=== PATIENT | male | born 1980 | race Caucasian/White ===

== ENCOUNTER 2021-07-20 02:59 | Outpatient (CLI) | payer OTHER, SELFPAY ==
[2021-07-20 10:17] LABS: Calculated LDL 181 mg/dL (<100); Cholesterol 263 mg/dL (<200); HDL Cholesterol 73 mg/dL (40-60); Triglyceride 45 mg/dL (<150)
[2021-07-21 13:42] LABS: Hemoglobin A1C 5.4 % (<5.7)
== END 2021-07-20 03:00 | disposition home or self-care (01) ==
PROVIDERS: Visit Provider Family Medicine
DX: Z13.220 Encounter for screening for lipoid disorders (principal); Z13.1 Encounter for screening for diabetes mellitus
CPT/HCPCS: 36415; 80061; 83036

== ENCOUNTER 2023-07-31 16:31 | Outpatient (REF) | payer OTHER, SELFPAY ==
[2023-07-31 21:33] LABS: Calculated LDL 195 mg/dL (<100); Cholesterol 272 mg/dL (<200); HDL Cholesterol 69 mg/dL (40-60); Triglyceride 41 mg/dL (<150)
== END 2023-07-31 16:32 | disposition home or self-care (01) ==
LOC: NCHCN 16:31
PROVIDERS: Visit Provider Family Medicine
DX: Z13.220 Encounter for screening for lipoid disorders (principal); Z83.49 Family history of other endocrine, nutritional and metabolic diseases
CPT/HCPCS: 80061

== ENCOUNTER → 2023-08-20 11:15 | Outpatient (CLI) | payer OTHER, SELFPAY ==
--- NOTE | 2023-08-20 | DI.RAD_ITS ---
Exam(s) XR LUMBAR SPINE COMPLETE EXAM: XR LUMBAR SPINE COMPLETE CLINICAL HISTORY: LOW BACK PAIN M54.50. TECHNIQUE: 2D digital imaging was performed. Five views. COMPARISON: No exams were available for comparison FINDINGS: BONES: No fracture or destructive lesion. Vertebral body heights are maintained. Small endplate oste ophytes. No facet hypertrophy identified. DISKS: Mild narrowing of the L L5-S1 disc space. The remaining intervertebral disc spaces are mainta ined. ALIGNMENT: Lumbar spinal alignment is within normal limits. SOFT TISSUE: Normal. IMPRESSION: Mild degenerative changes. DATA REPOSITORY: RADIATION DOSE DELIVERED:
--- NOTE | 2023-08-20 | DI.RAD_ITS ---
Exam(s) XR HIP LT COMPLETE AP PELVIS EXAM: XR HIP LT COMPLETE AP PELVIS CLINICAL HISTORY: PAIN LEFT HIP M25.552. TECHNIQUE: 2D digital imaging was performed. Two views. COMPARISON: No exams were available for comparison FINDINGS: BONES: No acute fracture is present. No bony destructive lesion is seen. JOINTS: No dislocation present. Hip joint spaces are maintained. Minimal acetabular spurring. SI joints and pubic symphysis are unremarkable. SOFT TISSUE: Normal. IMPRESSION: Unremarkable radiographs of the left hip. Unremarkable radiographs of the pelvis DATA REPOSITORY: RADIATION DOSE DELIVERED:
--- NOTE | 2023-08-20 | DI.RAD_ITS ---
Exam(s) XR CERVICAL SPINE COMP 4-5V EXAM: XR CERVICAL SPINE COMP 4-5V CLINICAL HISTORY: CERVICALGIA M54.2. TECHNIQUE: 2D digital imaging was performed. Five views were performed. COMPARISON: No exams were available for comparison FINDINGS: BONES: No fracture or destructive lesion. Vertebral bodies are unremarkable. No significant neural foraminal narrowing. DISKS: Intervertebral disc spaces are maintained. Minimal endplate osteophytes at C5-6. ALIGNMENT: Cervical spinal alignment is within normal limits. The odontoid and atlantoaxial articulat ions are normal. SOFT TISSUE: Normal. The lung apices are clear. IMPRESSION: Mild degenerative disc changes at C5-6. DATA REPOSITORY: RADIATION DOSE DELIVERED:
== END ==
PROVIDERS: Visit Provider Family Medicine
DX: M25.552 Pain in left hip (principal); M50.122 Cervical disc disorder at C5-C6 level with radiculopathy
CPT/HCPCS: 72050; 72110; 73502

== ENCOUNTER 2024-01-29 08:35 | Outpatient (CLI) | payer OTHER, SELFPAY ==
--- OUTSIDE RECORDS SUMMARY | 2024-01-29 08:37 | XMS_ITS | Encounter Summary ---
Author Organization [facility] Address [address] [place] [address] Care Team Providers Care Digital Content Manager Name Role Phone Stephanie Fam MD Primary Care Provider [phone] Reason for Visit * Reason Comments Medications Refill Encounter Details Date Type Department Care Team (Late st Contact Info) Description 09/13/2023 Refill [facility] [address] [id number] Stephanie Fam MD [address] [place] [id number] Medications Refill Social History Tobacco Use Types Packs/Day Years Used Date Smoking Tobacco: Never Smokeless Tobacco: Never Alcohol Use Standard Drinks/Week Comments Yes 0 (1 standard drink = 0.6 oz pur e alcohol) 5 beers per week Overall Financial Resource Strain (CARDIA) Answe r Date Recorded How hard is it for you to pa y for the very basics like food, housing, medical care, and heating? Not hard at all 07/21/2021 PHQ-2 Answer Date Recorded PHQ-2 SUBTOTAL 1 07/21/2021 Hunger Vital Sign Answer Date Recorded Within the past 12 months, y ou worried that your food would run out before you got the money to buy more. Never true 07/21/19 22 Within the past 12 months, t he food you bought just didn't last and you didn't have money to get more. Never true 07/21/2021 PRAPARE - Transportation Answer Date Re corded In the past 12 months, has l ack of transportation kept you from medical appointments or from getting medications? No 09/2021 In the past 12 months, has l ack of transportation kept you from meetings, work, or from getting things needed for daily living? No 07/21/2021 Housing Stability Vital Sign Answer Jeremy e Recorded In the last 12 months, was t here a time when you were not able to pay the mortgage or rent on time? No 07/21/2021 In the last 12 months, how many places have you lived? 1 07/21/2021 In the last 12 months, was t here a time when you did not have a steady place to sleep or slept in a penitentiary (including now)? No 07/21/2021 Sex and Gender Information Value Date Recorded Sex Assigned at Not on file Gender Identity Not on file Sexual Orientation Not on file documented as of this encounter Miscellaneous Notes * Telephone Encounter - Stephanie Fam MD - 09/15/2023 1852 EDT Can we find out what he is using this for? documented in this encounter Plan of Treatment Not on file documented as of this encounter Visit Diagnoses Diagnosis Rash Rash and other nonspecific skin eruption documented in this encounter Care Teams Digital Content Manager Relationship Specialty Start Date End Date Stephanie Fam MD [address] [place] [id number] PCP - General 01/02/17 documented as of this encounter
--- OUTSIDE RECORDS SUMMARY | 2024-01-29 08:37 | XMS_ITS | Clinical Summary ---
Author Organization [facility] Address [address] [place] [address] Care Team Providers Care Supervisor Asphalt Paving Name Role Phone Stephanie Fam MD Primary Care Provider [phone] Allergies Active Allergy Reactions Criticality Noted Date Comments Epinephrine 01/02/2017 Low BP, shallow breathing Other - See Comments 01/02/2017 Dust, dander, and pollen Medications Medication Sig Dispensed Refills Start Date End Date Status ALBUTEROL INHL Inhale as directed. A ctive hydrocortisone (ANUSOL-HC) 2.5 % rectal creamIndications:Grad e I hemorrhoids Apply to affect area(s) as directed. 28 g 1 07/21/2021 Active albuterol 90 mcg/actuation inhalerIndications:Mi ld intermittent asthma without complication Inhale 2 Puffs as directed every 4 hours as needed for Wheezing. 1 Each 03/21/2023 Active ketoconazole (NIZORAL) 2 % creamIndications:Rash Apply 1 application topically to affected area daily. 15 g 03/21/2023 Active Active Problems Problem Noted Date Diagnosed Date Persistent disorder of initiating or maintaining sleep 01/02/2017 Immunizations Name Administration Dates Next Due Covid-19 Ad26 Vaccine (JANSS EN COVID-19) PF 0.5 ml IM (18 yrs+) 09/22/2020 Covid-19 mRNA Vaccine (MODER NA COVID-19) PF 0.5 ml IM (12 yrs+) 05/01/2021 Covid-19 mRNA-LNP Bivalent V accine (MODERNA BIVALENT ADDL DOSE) PF 0.5 mL IM (12 yrs+) (BLUE) 04/05/2022 Historical Hepatitis B Vaccine, Unspecified 12/16,02/16/1997,04/03/1996 Historical Influenza Vaccine, Unspecified 2021,03/29/2021 Influenza Vaccine =>3yo Split IM 04/25/2017,03/18 Pneumococcal Polysaccharide (PPSV23) Vaccine (PNEUMOVAX-23) =>2YO SQ/IM 06/08/2016 Td (Adult) (TDVAX) 2 Lf Vaccine =>7yo IM 006,04/03/1996 Tdap Vaccine =>7YO IM 07/30/2011 Social History Tobacco Use Types Packs/Day Years [...] place to sleep or slept in a care home (including now)? No 07/21/2021 Sex and Gender Information Value Date Recorded Sex Assigned at Not on file Gender Identity Not on file Sexual Orientation Not on file Obstetrics History Last Filed Vital Signs Vital Sign Reading Time Taken Comments Blood Pressure 144/87 07/21/2021 1257 EST Pulse 72 07/21/2021 1257 EST Temperature - - Respiratory Rate 14 01/02/2017 1155 EDT Oxygen Saturation 98% 01/02/2017 1155 EDT Inhaled Oxygen Concentration - - Weight 89.4 kg (197 lb) 07/21/2021 1257 EST Height 185.4 cm (6' 1) 07/21/2021 1257 EST Body Mass Index 25.99 07/21/2021 1257 EST Plan of Treatment Health Maintenance Due Date Last Done Comments Social Determinants Of Health (SDOH) 1980 07/21/2021 Lipid Profile Screening (Cholesterol) 1981 Advance Directive 02/08/1996 Tetanus (Adult) Immunization 07/30/2021 07/30/2011, 08/03/2005, 04/03/1996 Depression Screening 07/21/2022 07/21/2021 Cologuard (Colon Cancer Screening) 2023 Colonoscopy (Colon Cancer Screening) 2023 Colorectal Cancer Screening 2023 FIT Test (Colon Cancer Screening) 2023 Sigmoidoscopy (Colon Cancer Screening) 2023 COVID-19 Vaccine ( season) 2023 04/05/2022, 05/01/2021, 09/22/2020 Preventive Care Visit 07/21/2023 07/21/2021 Influenza Immunization (Adult) (#1) 2024 04/05/2022, 03/29/2021, 04/25/2017, Additional history exists Hepatitis B Vaccine Completed 01/11/1998, 02/16/1997, 04/03/1996 Pertussis (Adult) Immunization Completed 07/30/2011 HIV Screening Discontinued HPV Vaccines Aged Out No longer eligi ble based on patient's age to complete this topic Hepatitis C Screen Discontinued Care Teams Supervisor Asphalt Paving Relationship Specialty Start Date End Date Stephanie Fam MD [address] [place] [id number] PCP - General 01/02/17
--- OUTSIDE RECORDS SUMMARY | 2024-01-29 08:37 | XMS_ITS | Encounter Summary ---
Author Organization [facility] Address [address] [place] [address] Care Team Providers Care Hydrometer Tester Name Role Phone Stephanie Fam MD Primary Care Provider [phone] Reason for Visit * Reason Onset Date Comments Appointment Related 04/29/2017 Encounter Details Date Type Department Care Team (Late st Contact Info) Description 04/29/2017 Telephone [facility] - [address] [phone] Kanika Nino MD [address] [place] [address], [address] [place] [address] Appointment Related Social History Tobacco Use Types Packs/Day Years Used Date Smoking Tobacco: Never Alcohol Use Standard Drinks/Week Comments [...] place to sleep or slept in a halfway (including now)? No 07/21/2021 Sex and Gender Information Value Date Recorded Sex Assigned at Not on file Gender Identity Not on file Sexual Orientation Not on file documented as of this encounter Miscellaneous Notes * Telephone Encounter - Cris Ferguson - 04/29/2017 0837 EST Patient called regarding 05/02 appt, patient explained he needs to cancel the appt-he explained hasn't been using the cognitive behavioral techniques Dr. Nino suggested he use, but has had some luck with other techniques and requested I move out this appt. Rescheduled patient to August per patient's request. I will let Dr. Nino know the appt has moved. documented in this encounter Plan of Treatment Not on file documented as of this encounter Visit Diagnoses Not on filedocumented in this encounter Care Teams Hydrometer Tester Relationship Specialty Start Date End Date Stephanie Fam MD [address] [place] [id number] PCP - General 01/02/17 documented as of this encounter
--- OUTSIDE RECORDS SUMMARY | 2024-01-29 08:37 | XMS_ITS | Encounter Summary ---
Author Organization [facility] Address [address] [place] [address] Care Team Providers Care Inspector Poising Name Role Phone Stephanie Fam MD Primary Care Provider [phone] Reason for Visit * Reason Comments New Patient Visit * Referral (Routine) - Closed Specialty Diagnoses / Procedures Referred By Contac t Referred To Contact Sleep Medicine Diagnoses Other dyspnea and respiratory abnormality Hypersomnia, unspecified Organic parasomnia, unspecified Other organic sleep disorders Stephanie Fam MD [address] [place] [address] [facility] [address] [place] [id number] Referral ID Status Reason Start Date Expiration Date Visits Re quested Visits Authorized [id number] Closed 1 1 Encounter Details Date Type Department Care Team (Late st Contact Info) Description 01/02/2017 11:10 EDT Office Visit [facility] - [address] [phone] Kanika Nino MD [address] [place] [address], [address] [place] [address] Persistent disorder of initiating or maintaining sleep (Primary Dx); Fatigue, unspecified type; Snoring Social History Tobacco Use Types Packs/Day Years Used Date Smoking Tobacco: Never Alcohol Use Standard Drinks/Week Comments Yes 0 (1 standard drink = 0.6 oz pur e alcohol) 5 beers per week Sex and Gender Information Value Date Recorded Sex Assigned at Not on file Gender Identity Not on file Sexual Orientation Not on file documented as of this encounter Last Filed Vital Signs Vital Sign Reading Time Taken Comments Blood Pressure 134/86 01/02/2017 1155 EDT Pulse 68 01/02/2017 1155 EDT Temperature - - Respiratory Rate 14 01/02/2017 1155 EDT Oxygen Saturation 98% 01/02/2017 1155 EDT Inhaled Oxygen Concentration - - Weight 86.2 kg (190 lb) 01/02/2017 1155 EDT per pt Height 185.4 cm (6' 1) 01/02/2017 1155 EDT per pt Body Mass Index 25.07 01/02/2017 1155 EDT documented in this encounter Patient Instructions * Patient Instructions* Kanika Nino - 01/02/2017 11:10 EDT Healthy Sleep Advice If you are having problems sleeping, the National Sleep Foundation suggests the following to improve your sleep: Set and stick to a sleep schedule. Go to bed and wake up at the same times each day. Expose yourself to bright light in the morning and avoid it at night. Exposure to bright morning light energizes us and prepares us for a productive day. Alternatively, dim your lights when it's close to bedtime. Exercise regularly. Exercise in the morning can help you get the light exposure you need to set your biological clock. Avoid vigorous exercise close to bedtime if you are having problems sleeping. Establish a relaxing bedtime routine. Allow enough time to wind down and relax before going to bed. Create a cool, comfortable sleeping environment that is free of distractions. If you're finding that entertainment or work-related communications are creating anxiety, remove these distractions from your bedroom. Treat your bed as your sanctuary from the stresses of the day. If you find yourself still lying awake after 20 minutes or so, get up and do something relaxing in dim light until you are sleepy. Keep a worry book next to your bed. If you wake up because of worries, write them down with an action plan, and forget about them until morning. Avoid caffeinated beverages, chocolate and tobacco at night. Avoid large meals and beverages right before bedtime. No nightcaps. Drinking alcohol before bed can vonda you of deep sleep and can cause you to wake up too early. Avoid medicines that delay or disrupt your sleep. If you have trouble sleeping, ask your doctor or pharmacist if your medications might be contributing to your sleep problem. No late-afternoon or evening naps, unless you work nights. If you must nap, keep it under 45 minutes and before 3:00 pm. Reading Recommendations for Insomnia: The Insomnia Answer By Kavon Boyce, PhD On-line, validated, Interactive Cognitive Behavioral Treatment for Insomnia developed in [place] http://www.sleepio.com On-line Cognitive Behavioral Treatment for Insomnia Course through the [facility]: http://www.magruder hospitalTHEMA.Letsdecco/Pages/CCWProductDetails.aspx?category=Wel lnessPrograms&cat=WellnessCatalog&pid=NewSleep# Other lesser known On-line Programs: http://shuti.me/ http://cbtforinsomnia.com/ http://www.restorecbt.com/ Consider participating in The Sleep Well Program with Dr. Cee Reece (Cognitive Behavioral Treatment for Insomnia) - call [phone] to arrange documented in this encounter Progress Notes * Kanika Nino - 01/02/2017 1110 EDT [facility] Date of Service: 01/02/2017 Name: Luther Murphy : 1980 MR#: [id number] Luther Murphy is a 36 y.o. year old male sent for Sleep Consultation at the request of Stephanie Fam MD because of never feeling refreshed in the morning and feeling the same whether he slept 4 hours or 8 hours during the night. Luther describes feeling unrefreshed and tired in the morning since childhood. He does not remembera time when he slept well and awakened feeling refreshed with good wakefulness across the daytime. Currently, his sleep schedule is extremely irregular, such that he goes to bed somewhere between 10:00 p.m. and as late as 4:00 a.m. and then sleeps for a variable amount of time, usually waking by 9am to care for his children. He frequently has difficulty falling asleep so he avoids going to sleep until he is very tired and frequently spends late nights on the computer, surfing the net, working or looking at news as a result. He has racing thoughts which prevents him from falling asleep and from getting back to sleep if he awakens. He has tried taking melatonin several times, but felt nauseated with that. He occasionally uses Benadryl as a sleep aid which makes him drowsy but does not improve sleep quality. He would prefer not to use medications. He uses marijuana frequently around 7:00 p.m. in the evening time to relax, but does not fall asleep with that. When he wakes in the morning, he is unrested and is tired and sleepy across the daytime. Jenera Sleepiness Scale is 9/24. It takes him at least a few hours to get going in the morning and he would love to take a nap in the afternoon about 5 times a week, although he rarely has time to do that. He finds a twenty minute nap to be refreshing. He has been told he snores lightly and his brother has told him he stops breathing. His , however, has not noticed anything unusual about his breathing during sleep, although she sleeps solidly. He has some chronic nasal congestion and has a history of allergies as well as a history of nasal fra cture, which he had repaired. He remotely tried a nasal steroid inconsistently. He is aware of mouth breathing during sleep. He says that he has poor sleep habits and discipline. He holds a diagnosis of ADD since he was 15 years old. He did try stopping drinking any beer or using marijuana for about a 4-week period but had minimal improvement in sleep or daytime functioning. He denies leg symptoms, nightmares or vivid dreams, narcolepsy symptoms, or parasomnias. Outpatient Prescriptions Marked as Taking for the 01/02/17 encounter (Office Visit) with Kanika Nino MD Medication Sig Dispense Refill ??? ALBUTEROL INHL Inhale as directed. Allergies: Epinephrine and Other - see comments Social History Social History ??? Marital status: Spouse name: N/A ??? Number of children: N/A ??? Years of education: N/A Social History Main Topics ??? Smoking status: Never Smoker ??? Smokeless tobacco: None ??? Alcohol use Yes Comment: 5 beers per week ??? Drug use: 7.00 per week Special: Marijuana Comment: evening ??? 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 His children are 5 and 8. FH: Mother: insomnia ROS (scanned in) was reviewed. I performed a complete ten-point review of systems with pertinent positives noted above and all the other systems negative. Blood pressure 134/86, pulse 68, resp. rate 14, height 185.4 cm (73), weight 86.2 kg (190 lb), SpO2 98 %. Body mass index is 25.07 kg/(m^2). Head: atraumatic, normocephalic Oropharynx: Modified Mallampati 3, 2+ lateral narrowing, Dentition: Intact Nasal: very mild congestion bilaterally Neck: Circumference supple, no LAD, Thyroid normal Lungs: Clear, no wheezing with forced expiration, normal respiratory excursion Heart: RRR, Normal S1, S2, no murmurs Abdomen: Soft, NT, +BS Extremities: no peripheral edema, no cyanosis, warm Neuro: Gait normal. Strength 5/5 grossly. Speech fluent. Psychiatric: AOX3. Normal mood and affect. Judgment and insight appropriate. Jenera Sleepiness Scale: 03/10 Assessment: Insomnia compounded by very poor sleep hygiene and very irregular sleep habits, He has been unable to change things significantly despite multiple attempts. Electronics during the night compound things. Anxiety possibly contributing as well ? Sleep disordered breathing, low probability but may need evaluation if things don't improve with Cognitive Behavioral Treatment for Insomnia with Dr. Cee Reece Nasal congestion with h/o allergies and nasal trauma/repair - Minor problem Plan: Cognitive Behavioral Treatment for Insomnia with Dr. Cee Reece Medication discussed but nothing scripted for - he agrees with waiting to see how CBT-I works first Sleep hygiene measure discussed - avoid substances, 8 hour window free of electronics/work at night, exercise in the morning Trial of Flonase for nasal congestion Lab testing deferred to PCP. F/u 4 months, may consider doing a PSG or HSAT at that time to r/o Sleep Disordered Breathing Signed: Kanika Nino MD documented in this encounter Plan of Treatment Not on file documented as of this encounter Visit Diagnoses Diagnosis Persistent disorder of initiating or maintaining sleep- Primary Fatigue, unspecified type Snoring Other dyspnea and respiratory abnormality documented in this encounter Historical Medications * This list may reflect changes made after this encounter. Medication Sig Dispensed Refills Start Date End Date ALBUTEROL INHL Inhale as directed. added in this encounter Care Teams Inspector Poising Relationship Specialty Start Date End Date Stephanie Fam MD [address] [place] [id number] PCP - General 01/02/17 documented as of this encounter
--- OUTSIDE RECORDS SUMMARY | 2024-01-29 08:37 | XMS_ITS | Encounter Summary ---
Author Organization [facility] Address [address] [place] [address] Care Team Providers Care Educational Consultant Name Role Phone Stephanie Fam MD Primary Care Provider [phone] Reason for Visit * Reason Onset Date Comments Appointment Related 07/21/2021 Encounter Details Date Type Department Care Team (Late st Contact Info) Description 07/21/2021 Telephone [facility] [address] [phone] Stephanie Fam MD [address] [place] [address] Appointment Related Social History Tobacco Use Types [...] place to sleep or slept in a residential (including now)? No 07/21/2021 Sex and Gender Information Value Date Recorded Sex Assigned at Not on file Gender Identity Not on file Sexual Orientation Not on file documented as of this encounter Miscellaneous Notes * Telephone Encounter - Cristiane Ellis - 07/24/2021 0825 EST Pt scheduled * Telephone Encounter - Cristiane Ellis - 07/21/2021 1408 EST Left vm for pt to cb to sched pex 07/22/2022 documented in this encounter Plan of Treatment Not on file documented as of this encounter Visit Diagnoses Not on filedocumented in this encounter Care Teams Educational Consultant Relationship Specialty Start Date End Date Stephanie Fam MD [address] [place] [id number] PCP - General 01/02/17 documented as of this encounter
--- OUTSIDE RECORDS SUMMARY | 2024-01-29 08:37 | XMS_ITS | Encounter Summary ---
Author Organization [facility] Address [address] [place] [address] Care Team Providers Care Certified Phlebotomy Technician Name Role Phone Stephanie Fam MD Primary Care Provider [phone] Reason for Visit * Reason Comments Annual Exam Establish Care Encounter Details Date Type Department Care Team (Latest Contact Info) Description 07/21/2021 13:00 EST Telemedicine [facility] Integrative Family Medicine [address] [id number] Stephanie Fam MD [address] [place] [address] Grade I hemorrhoids (Primary Dx); Mild intermittent asthma without complication; Encounter for sterilization; Rash; Encounter for well adult exam with abnormal findings Social History Tobacco Use Types Packs/Day Years [...] place to sleep or slept in a retirement (including now)? No 07/21/2021 Sex and Gender Information Value Date Recorded Sex Assigned at Not on file Gender Identity Not on file Sexual Orientation Not on file documented as of this encounter Last Filed Vital Signs Vital Sign Reading Time Taken Comments Blood Pressure 144/87 07/21/2021 1257 EST Pulse 72 07/21/2021 1257 EST Temperature - - Respiratory Rate - - Oxygen Saturation - - Inhaled Oxygen Concentration - - Weight 89.4 kg (197 lb) 07/21/2021 1257 EST Height 185.4 cm (6' 1) 07/21/2021 1257 EST Body Mass Index 25.99 07/21/2021 1257 EST documented in this encounter Ordered Prescriptions Prescription Sig Dispensed Refills Start Date End Da te hydrocortisone (ANUSOL-HC) 2.5 % rectal creamIndications:Grade I hemorrhoids Apply to affect area(s) as directed. 28 g 1 07/21/2021 ketoconazole (NIZORAL) 2 % creamIndications:Rash Apply 1 application topically to affected area daily. 15 g 07/21/2021 10/01/2022 albuterol 90 mcg/actuation inhalerIndications:Mild intermittent asthma without complication Inhale 2 Puffs as directed every 4 hours as needed for Wheezing. 1 Each 07/21/2021 03/21/2023 documented in this encounter Progress Notes * Suzie Garces MA - 07/21/2021 1300 EST Called pt prior to consented televid w/ Aman Fam MD. Confirmed today's visit is for re-establishcare/pex only. Reviewed meds, allergies and vitals. Chart has been updated. Stephanie Fang MD - 07/21/2021 1300 EST Images from the original note were not included. [facility] Video Visit Today's visit was provided through telemedicine video conferencing: The location of the patient: Home The location of the provider: Office Verbal consent: The concept of ???Telemedicine?? has been described to the patient.Patient has been informed of the anticipated benefits and possible risks. Patient understands the information provided regarding telemedicine, has had the opportunity to ask questions about this information, and all questions have been answered to patient???s satisfaction. Patient consents for the use of telemedicine in his/her medical care and authorizes the transmission of any relevant medical information to providers and their staff involved in patient???s medical or mental health care. Verbal consent obtained by myself or auxiliary staff: yes. Preventive Service Visit Chief Complaint Patient presents with ??? Annual Exam ??? Establish Care HPI: Luther is a 41 y.o. male presenting for a routine check-up and exam. Patient's diet is healthy diet in general. Patient's activity level is walking. Wants vasectomy. Needs refills. Cancer Screening: PMH, FH --colon: Uncle with colon cancer in early 50s --lung: Nonsmoker --skin: wears sunscreen --prostate: No issues Osteoporosis Screening: N/A STD (HIV,HCV, GC/C <24 yr or high risk): Declines HIV and Hep C Vision, Hearing, Dental: Sees eye doctor and dentis regularly, no hearing issues HTN, HLD, DMT2 Screening: Just had them done at outside hospital, and slightly elevate (see scanneddocuments) No results found for: TRIG, CHOL, HDL, LDL, SPEALB, APS, BILT, BUN, CA, CL, CO2, CREATININE, CALCGFR, ANIONGAP, GLU, K, NA, PROT, SGOT, SGPT Mood: Behavioral Health Screen PHQ-2 Little interest or pleasure in doing things?: Not at all Feeling down, depressed, or hopeless?: Several days PHQ-2 SUBTOTAL: 1 PHQ-9 ISIS-7 Feeling nervous, anxious, or on edge: Several days Not being able to stop or control worrying: Not at all Worrying too much about different things: Not at all Trouble relaxing: Not at all Being so restless that it is hard to sit still: Not at all Becoming easily annoyed or irritable: Several days Feeling afraid as if something awful might happen: Not at all ISIS-7 Total Score: 2; ISIS-2 Subtotal: 1 ISIS-7 Score Interpretation: Minimal Anxiety SASQ How many times in the past year have you had 5 or more drinks in a single day?: Never AUDIT-10 Prescription Misuse How many times in the past year have you used an illegal drug or used a prescription medication fornon-medical reasons?: Never DAST-10 Substances & Tobacco: reports that he has never smoked. He has never used smokeless tobacco. Hereports current alcohol use. Weight, Exercise: stable, regular exercise Injury prevention: wear seat belts Immunizations: Immunization History Administered Date(s) Administered ??? Covid-19 Ad26 Vaccine (TIARRA COVID-19) PF 0.5 ml IM (18 yrs+) 09/22/2020 ??? Covid-19 mRNA Vaccine (MODERNA COVID-19) PF 0.5 ml IM (18 yrs+) 05/01/2021 ??? Historical Hepatitis B Vaccine, Unspecified 04/03/1996, 02/16/1997, 01/11/1998 ??? Historical Influenza Vaccine, Unspecified 03/29/2021 ? ? Influenza Vaccine =>3yo Split IM 04/09/2014, 04/25/2017 ? ? Pneumococcal Polysaccharide (PPSV23) Vaccine (PNEUMOVAX-23) =>2YO SQ/IM 06/08/2016 ? ? Td (Adult) 2 Lf Vaccine =>7yo IM 04/03/1996, 08/03/2005 ? ? Tdap Vaccine =>7YO IM 07/30/2011 Domestic Violence Screen: Feels safe at home Advance Directive: No, packet sent History reviewed. No pertinent past medical history. History reviewed. No pertinent surgical history. History reviewed. No pertinent family history. Social History Tobacco Use ??? Smoking status: Never Smoker ??? Smokeless tobacco: Never Used Substance Use Topics ??? Alcohol use: Yes Comment: 5 beers per week ??? Drug use: Yes Frequency: 7.0 times per week Types: Marijuana Comment: evening Current Outpatient Medications: ??? albuterol 90 mcg/actuation inhaler, Inhale 2 Puffs as directed every 4 hours as needed for Wheezing., Disp: 1 Each, Rfl: 0 ??? ALBUTEROL INHL, Inhale as directed., Disp: , Rfl: ??? hydrocortisone (ANUSOL-HC) 2.5 % rectal cream, Apply to affect area(s) as directed., Disp: 28 g, Rfl: 1 ??? ketoconazole (NIZORAL) 2 % cream, Apply 1 application topically to affected area daily., Disp: 15 g, Rfl: 0 I have reviewed patient's medication list, past medical history, social history, and family historyand updated as appropriate on 07/21/2021. ROS: Review of Systems Respiratory: Negative for shortness of breath. Neurological: Positive for tingling. Objective: Examination: Vitals: BP (!) 144/87 (BP Cuff Location: Right arm, BP Patient Position: Sitting, BP Cuff Sizes: Adult, large) Pulse 72 Ht 185.4 cm (73) Wt 89.4 kg (197 lb) BMI 25.99 kg/m?? Body mass index is 25.99kg/m??. Physical Exam Constitutional: Appearance: Normal appearance. He is well-developed. HENT: Head: Normocephalic and atraumatic. Eyes: Conjunctiva/sclera: Conjunctivae normal. Pulmonary: Effort: Pulmonary effort is normal. Musculoskeletal: Cervical back: Neck supple. Skin: General: Skin is dry. Neurological: General: No focal deficit present. Mental Status: He is alert and oriented to person, place, and time. Mental status is at baseline. Psychiatric: Mood and Affect: Mood normal. Behavior: Behavior normal. Thought Content: Thought content normal. Judgment: Judgment normal. Data reviewed with patient (past results): No results found for this or any previous visit. Assessment & Plan: Luther was seen today for annual exam and establish care. Diagnoses and all orders for this visit: Grade I hemorrhoids - hydrocortisone (ANUSOL-HC) 2.5 % rectal cream; Apply to affect area(s) as directed. Mild intermittent asthma without complication - albuterol 90 mcg/actuation inhaler; Inhale 2 Puffs as directed every 4 hours as needed for Wheezing. Encounter for sterilization - AMB CONS/FOLLOW UP UROLOGY; Future Rash - ketoconazole (NIZORAL) 2 % cream; Apply 1 application topically to affected area daily. Encounter for well adult exam with abnormal findings - Age-appropriate counseling, vaccines, screening labs, and tests discussed and ordered. - Injury prevention and high risk lifestyle has been reviewed with patient. - Depression screening questions reviewed. - Weight reviewed, and patient recommended to continue current healthy lifestyle patterns and return for routine annual checkups. Significant, separately, identifiable E/M service by the same Provider on the same day of the procedure or service. [Modifier 25] Return in about 1 year (around 07/21/2022) for CPE. I spent a total of 40 minutes in discussion with the patient as described in the progress note. The following individuals and their role did participate in today's encounter visit: Provider: Stephanie Fam MD Patient Stephanie Fam MD, FAAFP documented in this encounter Plan of Treatment Not on file documented as of this encounter Visit Diagnoses Diagnosis Grade I hemorrhoids- Primary Unspecified hemorrhoids without mention of complication Mild intermittent asthma without complication Unspecified asthma Encounter for sterilization Sterilization Rash Rash and other nonspecific skin eruption Encounter for well adult exam with abnormal findings documented in this encounter Care Teams Certified Phlebotomy Technician Relationship Specialty Start Date End Date Stephanie Fam MD [address] [place] [id number] PCP - General 01/02/17 documented as of this encounter
--- OUTSIDE RECORDS SUMMARY | 2024-01-29 08:37 | XMS_ITS | Referral Summary ---
Author Organization [facility] Address [address] [place] [address] Care Team Providers Care Title Inspector Name Role Phone Stephanie Fam MD Primary Care Provider [phone] Allergies Active Allergy Reactions Criticality Noted Date [...] place to sleep or slept in a custodial (including now)? No 07/21/2021 Sex and Gender Information Value Date Recorded Sex Assigned at Not on file Gender Identity Not on file Sexual Orientation Not on file Last Filed Vital Signs Vital Sign Reading [...] 25.99 07/21/2021 1257 EST Plan of Treatment Not on file Care Teams Title Inspector Relationship Specialty Start Date End Date Stephanie Fam MD [address] [place] [address] PCP - General 01/02/17
--- OUTSIDE RECORDS SUMMARY | 2024-01-29 08:37 | XMS_ITS | Encounter Summary ---
Author Organization [facility] Address [address] [place] [address] Care Team Providers Care Restaurant Shift Supervisor Name Role Phone Stephanie Fam MD Primary Care Provider [phone] Reason for Visit * Reason Onset Date Comments Labs Only 07/20/2021 Encounter Details Date Type Department Care Team (Late st Contact Info) Description 07/20/2021 Telephone [facility] Integrative Family Medicine [facility] [address] [place], [place] [phone] Stephanie Fam MD [address] [place] [address] Labs Only Social History Tobacco Use Types Packs/Day Years [...] place to sleep or slept in a [place] health care facility (including now)? No 07/21/2021 Sex and Gender Information Value Date Recorded Sex Assigned at Not on file Gender Identity Not on file Sexual Orientation Not on file documented as of this encounter Miscellaneous Notes * Telephone Encounter - Blossom Hillman RN - 07/21/2021 0835 EST Order placed. Patient informed. * Telephone Encounter - Stephanie Fam MD - 07/20/2021 1402 EST Sure * Telephone Encounter - Christy Hicks - 07/20/2021 0831 EST Pt called wondering if we can add A1C to his labs He is at the lab now, This is just in case he changes tomorrows appt to a zoom. documented in this encounter Plan of Treatment Not on file documented as of this encounter Visit Diagnoses Diagnosis Screening for diabetes mellitus- Primary documented in this encounter Care Teams Restaurant Shift Supervisor Relationship Specialty Start Date End Date Stephanie Fam MD [address] [place] [address] PCP - General 01/02/17 documented as of this encounter
--- OUTSIDE RECORDS SUMMARY | 2024-01-29 08:37 | XMS_ITS | Encounter Summary ---
Author Organization [facility] Address [address] [place] [address] Care Team Providers Care Pump Erector Name Role Phone Stephanie Fam MD Primary Care Provider [phone] Reason for Visit * Reason Onset Date Comments Medications Refill 10/01/2022 Encounter Details Date Type Department Care Team (Late st Contact Info) Description 10/01/2022 Refill [facility] Integrative Family Medicine [address] [id number] Stephanie Fam MD [address] [place] [address] Medications Refill Social History Tobacco Use [...] place to sleep or slept in a jail (including now)? No 07/21/2021 Sex and Gender Information Value Date Recorded Sex Assigned at Not on file Gender Identity Not on file Sexual Orientation Not on file documented as of this encounter Ordered Prescriptions Prescription Sig Dispensed Refills Start Date End Da te ketoconazole (NIZORAL) 2 % creamIndications:Rash Apply 1 application topically to affected area daily. 15 g 10/02/2022 03/21/2023 documented in this encounter Miscellaneous Notes * Telephone Encounter - Blossom Hillman RN - 10/01/2022 1410 EDT Medication Requested: Ketoconazole Nizoral 2% cream Last OV: Visit date not found Next OV: Visit date not found Last Refill (If required): 07/21/2021 Last Labs (BMP/CMP/LIPID/TSH) : n/a Pharmacy Of Choice: [facility] * Telephone Encounter - Blossom Hillman RN - 10/01/2022 1412 EDTFrom: Luther Murphy To: Office of Stephanie Fam MD Sent: 10/01/2022 14:06 EDT Subject: Medication Renewal Request Refills have been requested for the following medications: ketoconazole (NIZORAL) 2 % cream [Stephanie Fam] Preferred pharmacy: [id number] [facility] documented in this encounter Plan of Treatment Not on file documented as of this encounter Visit Diagnoses Diagnosis Rash- Primary Rash and other nonspecific skin eruption documented in this encounter Discontinued Medications Medication Sig Discontinue Reason Start Date End Da te ketoconazole (NIZORAL) 2 % creamIndications:Rash Apply 1 application topically to affected area daily. Reorder 07/21/2021 10/01/2022 documented as of this encounter Care Teams Pump Erector Relationship Specialty Start Date End Date Stephanie Fam MD [address] [place] [id number] PCP - General 01/02/17 documented as of this encounter
--- OUTSIDE RECORDS SUMMARY | 2024-01-29 08:37 | XMS_ITS | Encounter Summary ---
Author Organization [facility] Address [address] [place] [address] Care Team Providers Care Residential Gas Heat Technician Name Role Phone Stephanie Fam MD Primary Care Provider [phone] Reason for Visit * Reason Onset Date Comments Labs Only 05/23/2021 Encounter Details Date Type Department Care Team (Late st Contact Info) Description 05/23/2021 Telephone [facility] Integrative Family Medicine [address] [phone] Stephanie Fam MD [address] [place] [address] Labs Only Social History Tobacco [...] Telephone Encounter - Blossom Hillman RN - 05/24/2021 0901 EST Added to appt note * Telephone Encounter - Stephanie Fam MD - 05/24/2021 0824 EST Yes, please. * Telephone Encounter - Blossom Hillman RN - 05/24/2021 0811 EST Patient informed the lab order has been sent. Patient asks about checking his hemoglobin A1c when he comes for his physical. Okay to add to appt notes? * Telephone Encounter - Blossom Hillman RN - 05/23/2021 1012 EST Lab order placed. Fax sent to [facility] * Telephone Encounter - Stephanie Fam MD - 05/23/2021 0954 EST Sure * Telephone Encounter - Cristiane Ellis - 05/23/2021 0920 EST Pt would like an order for cholesterol set up prior to appt to re-est care in July with . Would like the order sent [facility] in [facility]; please call when order has been put in documented in this encounter Plan of Treatment Not on file documented as of this encounter Visit Diagnoses Diagnosis Screening for cholesterol level- Primary Screening for lipoid disorders documented in this encounter Care Teams Residential Gas Heat Technician Relationship Specialty Start Date End Date Stephanie Fam MD [address] [place] [id number] PCP - General 01/02/17 documented as of this encounter
--- OUTSIDE RECORDS SUMMARY | 2024-01-29 08:37 | XMS_ITS | Encounter Summary ---
Author Organization [facility] Address [address] [place] [address] Care Team Providers Care Nuclear Plant Equipment Operator Name Role Phone Stephanie Fam MD Primary Care Provider [phone] Reason for Visit * Reason Onset Date Comments Medications Refill 03/21/2023 Encounter Details Date Type Department Care Team (Late st Contact Info) Description 03/21/2023 Refill [facility] Integrative Family Medicine [address] [phone] Stephanie Fam MD [address] [place] [address] Medications Refill Social History Tobacco [...] place to sleep or slept in a [facility] (including now)? No 07/21/2021 Sex and Gender Information Value Date Recorded Sex Assigned at Not on file Gender Identity Not on file Sexual Orientation Not on file documented as of this encounter Ordered Prescriptions Prescription Sig Dispensed Refills Start Date End Da te ketoconazole (NIZORAL) 2 % creamIndications:Rash Apply 1 application topically to affected area daily. 15 g 03/21/2023 albuterol 90 mcg/actuation inhalerIndications:Mild intermittent asthma without complication Inhale 2 Puffs as directed every 4 hours as needed for Wheezing. 1 Each 03/21/2023 documented in this encounter Miscellaneous Notes * Telephone Encounter - Michelle Álvarez RN - 03/21/2023 1331 EDT NICK - 07/21/21 NOV - none Rx(s) escribed to pharmacy. Pls schedule PEX. * Telephone Encounter - Michelle Álvarez RN - 03/21/2023 1331 EDTFrom: Luther Murphy To: Office of Stephanie Fam MD Sent: 03/21/2023 11:00 EDT Subject: Medication Renewal Request Refills have been requested for the following medications: albuterol 90 mcg/actuation inhaler [Stephanie Fam] ketoconazole (NIZORAL) 2 % cream [Stephanie Fam] Preferred pharmacy: [id number] [place], [place] - [address] [place] [address] AT [facility] documented in this encounter Plan of Treatment Not on file documented as of this encounter Visit Diagnoses Diagnosis Mild intermittent asthma without complication Unspecified asthma Rash Rash and other nonspecific skin eruption documented in this encounter Discontinued Medications Medication Sig Discontinue Reason Start Date End Da te albuterol 90 mcg/actuation inhalerIndications:Mild intermittent asthma without complication Inhale 2 Puffs as directed every 4 hours as needed for Wheezing. Reorder 07/21/2021 03/21/2023 ketoconazole (NIZORAL) 2 % creamIndications:Rash Apply 1 application topically to affected area daily. Reorder 10/02/2022 03/21/2023 documented as of this encounter Care Teams Nuclear Plant Equipment Operator Relationship Specialty Start Date End Date Stephanie Fam MD [address] [place] [id number] PCP - General 01/02/17 documented as of this encounter
--- OUTSIDE RECORDS SUMMARY | 2024-01-29 08:37 | XMS_ITS | Encounter Summary ---
Author Organization [facility] Address [address] [place] [address] Care Team Providers Care Manager Cardiac Cath Name Role Phone Stephanie Fam MD Primary Care Provider [phone] Reason for Visit * Reason Onset Date Comments Appointment Related 08/30/2017 Encounter Details Date Type Department Care Team (Late st Contact Info) Description 08/30/2017 Telephone [facility] Sleep Program - [address] [phone] Kanika Nino MD [address] [place] [address] [address] [place] [address] Appointment Related Social History Tobacco [...] * Telephone Encounter - Cris Ferguson - 08/30/2017 1025 EDT Patient called, cancelled follow up appt for 09/02. Patient requested to not reschedule at this time. documented in this encounter Plan of Treatment Not on file documented as of this encounter Visit Diagnoses Not on filedocumented in this encounter Care Teams Manager Cardiac Cath Relationship Specialty Start Date End Date Stephanie Fam MD [address] [place] [id number] PCP - General 01/02/17 documented as of this encounter
--- OUTSIDE RECORDS SUMMARY | 2024-01-29 08:37 | XMS_ITS | Encounter Summary ---
Author Organization [facility] Address [address] [place] [address] Care Team Providers Care Etch Operator Semiconductor Wafers Name Role Phone Bo Howe MD Primary Care Provider Unavailab le Unknown, Provider Primary Care Provider [phone] Stephanie Fam MD Primary Care Provider Encounter Details Date Type Department Care Team (Late st Contact Info) Description 10/30/2007 Before PRISM Converted Visit (Maple) [facility] conversion [address] [place] [address] Wilson Azar DPM [address] [place] [phone] Social History Tobacco Use Types Packs/Day Years Used Date Smoking Tobacco: Never Assessed Sex and Gender Information Value Date Recorded Sex Assigned at Not on file Gender Identity Not on file Sexual Orientation Not on file documented as of this encounter Plan of Treatment Not on file documented as of this encounter Procedures Procedure Name Priority Date/Time Associated Diagnosis Comments XR FT 2V WGT BR KIMBERLY* 10/30/2007 11:10 EDT documented in this encounter Results * XR FT 2V WGT BR KIMBERLY* (10/30/2007 11:10 EDT) Anatomical Region Laterality Modality Other 10/30/2007 11:1 0 EDT Narrative 11/28/2008 11:12 EDT FOOT PAIN PLANTER FACITIS This report has been dictated at [facility]. ??If you would like a copy of this report, please call . Procedure Note Ike Cabrera MD - 11/28/2008 FOOT PAIN PLANTER FACITIS This report has been dictated at [facility]. If you would like a copy of this report, please call . Wilson Azar DPM IMG DIAGNOSTIC IMAG ING ORDERABLES documented in this encounter Visit Diagnoses Not on filedocumented in this encounter Care Teams Etch Operator Semiconductor Wafers Relationship Specialty Start Date End Date Bo Howe MD PCP - General 04/23/15 12/09/16 Unknown, ProviderMD PCP - General 12/10/16 01/01/17 Stephanie Fam MD [address] [place] [id number] PCP - General 01/02/17 documented as of this encounter
[2024-01-29 12:37] LABS: Calculated LDL 101 mg/dL (<100); Cholesterol 170 mg/dL (<200); HDL Cholesterol 58 mg/dL (40-60); Triglyceride 56 mg/dL (<150)
== END 2024-01-29 08:36 | disposition home or self-care (01) ==
LOC: LOS 08:35
PROVIDERS: Visit Provider Family Medicine
DX: E78.5 Hyperlipidemia, unspecified (principal)
CPT/HCPCS: 36415; 80061

== ENCOUNTER 2025-05-11 10:08 | Outpatient (REF) | payer OTHER, SELFPAY ==
[2025-05-11 16:37] LABS: ALT 33 U/L (10-49); AST 29 U/L (<34); Albumin 4.7 g/dL (3.2-5.0); Alkaline Phosphatase 71 U/L (46-116); Anion Gap 6.7 mmol/L (3-11); BUN 20 mg/dL (9-23); Bilirubin, Total 0.70 mg/dL (0.2-1.2); CO2 30.3 mmol/L (20.0-31.0); Calcium 9.8 mg/dL (8.3-10.6); Chloride 106 mmol/L (98-107); Cholesterol 188 mg/dL (<200); Glucose 92 mg/dL (74-106); HDL Cholesterol 62 mg/dL (>40); Potassium 4.2 mmol/L (3.5-5.1); Sodium 143 mmol/L (136-145); Total Protein 7.4 g/dL (5.7-8.2)
== END 2025-05-11 10:09 | disposition home or self-care (01) ==
LOC: NCHCN 10:08
PROVIDERS: Visit Provider Family Medicine
DX: E78.5 Hyperlipidemia, unspecified (principal)
CPT/HCPCS: 80053; 80061